=== PATIENT | female | born 1995 | race Caucasian/White ===

== ENCOUNTER 2024-06-19 18:11 | Emergency (ER) | payer SELFPAY ==
[~2024-06-19] VITALS: Ht 152.4 cm; Wt 40.8 kg
[2024-06-19 18:16] VITALS: O2SAT 99
[2024-06-19 20:07] LABS: GLUCOSE URINE NEGATIVE (NEGATIVE); KETONES URINE NEGATIVE (NEGATIVE)
[2024-06-19 20:18] LABS: *AMPHETAMINES SCREEN URINE PRESUMPTIVE POSITIVE (NEGATIVE); *BARBITURATES SCREEN URINE NEGATIVE (NEGATIVE); *BENZODIAZEPINES SCREEN URINE NEGATIVE (NEGATIVE); *COCAINE SCREEN URINE NEGATIVE (NEGATIVE); CANNABINOID URINE SCREEN NEGATIVE (NEGATIVE); COLOR URINE YELLOW (YELLOW); ECSTASY MDMA SCREEN URINE NEGATIVE (NEGATIVE); METHADONE URINE SCREEN NEGATIVE (NEGATIVE); OPIATES URINE SCREEN NEGATIVE (NEGATIVE); PH URINE 6.5 (4.5-8.0); PHENCYCLIDINE URINE SCREEN NEGATIVE (NEGATIVE); SPECIFIC GRAVITY URINE 1.007 (1.005-1.030)
[2024-06-19 20:19] LABS: LEUKOCYTE ESTERASE URINE TRACE (NEGATIVE); NITRITE URINE NEGATIVE (NEGATIVE); OCCULT BLOOD URINE 3+ (NEGATIVE); PROTEIN URINE NEGATIVE (NEGATIVE); UROBILINOGEN URINE 0.2 E.U./dL (0.2-1.0)
[2024-06-19 20:20] LABS: CLARITY URINE CLEAR (CLEAR)
[2024-06-19 20:26] LABS: BACTERIA URINE 1+; RBC URINE 0-2 /hpf (0-2); SQUAMOUS EPITHELIAL CELL URINE FEW /lpf (RARE/1+); WBC URINE 0-2 /hpf (0-2)
[2024-06-19] MEDS: LORAZEPAM 1MG TABLET PO ONE (22:05)
[2024-06-19 23:18] LABS: BASOPHILS % 1.3 % (0.0-2.0); EOSINOPHILS % 1.8 % (0.0-5.0); HEMATOCRIT. 35.7 % (36.0-48.0); HEMOGLOBIN. 12.2 g/dL (12.0-16.0); LYMPHOCYTES % 33.1 % (20.0-50.0); MEAN CORPUSCULAR HEMOGLOBIN 28.1 pg (28.0-32.0); MEAN CORPUSCULAR HGB CONC 34.1 g/dL (31.0-37.0); MEAN CORPUSCULAR VOLUME 82.6 fL (81.0-99.0); MEAN PLATELET VOLUME 6.7 fl (7.4-10.4); MONOCYTES % 7.1 % (2.0-8.0); NEUTROPHILS % 56.7 % (40.0-76.0); PLATELET 405 x1000/uL (130-400); RED BLOOD CELL COUNT 4.32 mill/uL (4.2-5.4); RED CELL DISTRIBUTION WIDTH 14.4 % (11.6-14.6)
[2024-06-19 23:25] LABS: CHLORIDE 102 mEq/L (98-107); POTASSIUM 3.8 mEq/L (3.5-5.1); SODIUM 140 mEq/L (136-145)
[2024-06-19 23:26] LABS: CARBON DIOXIDE 31 mEq/L (21-32)
[2024-06-19 23:27] LABS: CALCIUM 8.9 mg/dL (8.7-10.4)
[2024-06-19 23:30] LABS: HCG SCREEN NEGATIVE
[2024-06-19 23:31] LABS: CREATININE 0.8 mg/dL (0.6-1.0); GLUCOSE 99 mg/dL (70-105); UREA NITROGEN BLOOD 16 mg/dL (9-23)
[2024-06-19 23:33] LABS: ACETAMINOPHEN < 2 ug/mL (10-30); ALANINE AMINOTRANSFERASE 19 IU/L (10-49); ALBUMIN 3.8 g/dL (3.2-4.8); ASPARTATE AMINOTRANSFERASE 21 IU/L (<34)
[2024-06-19 23:34] LABS: BILIRUBIN TOTAL 0.3 mg/dL (0.1-1.0); PROTEIN TOTAL 6.9 g/dL (6.0-8.3)
[2024-06-19 23:39] LABS: BILIRUBIN DIRECT < 0.1 mg/dL (<=3.0); ETHANOL BLOOD < 10 mg/dL (<10)
[2024-06-20 22:19] VITALS: TEMP 36.89184
[2024-06-20 22:20] VITALS: BP 108/62; PULSE 86; RESP 20; O2SAT 98
== END 2024-06-20 22:47 ==
LOC: ER 18:11
DX: R45.851 Suicidal ideations (principal); F15.10 Other stimulant abuse, uncomplicated; J45.909 Unspecified asthma, uncomplicated; Z20.822 Contact with and (suspected) exposure to COVID-19
CPT/HCPCS: 36415; 80048; 80076; 80305; 80307; 80320; 80329; 81003; 84703; 85025; 87426; 99285; G0480

== ENCOUNTER 2025-03-08 10:15 | Emergency (ER) | payer SELFPAY ==
[~2025-03-08] VITALS: Ht 157.5 cm; Wt 46.0 kg
[2025-03-08 10:16] VITALS: BP 101/64; PULSE 85; RESP 14; TEMP 36.8; O2SAT 98
[2025-03-08 11:35] LABS: BASOPHILS % 0.7 % (0.0-2.0); EOSINOPHILS % 1.1 % (0.0-5.0); HEMATOCRIT. 32.2 % (36.0-48.0); HEMOGLOBIN. 10.7 g/dL (12.0-16.0); LYMPHOCYTES % 12.7 % (20.0-50.0); MEAN PLATELET VOLUME 7.1 fl (7.4-10.4); MONOCYTES % 5.5 % (2.0-8.0); NEUTROPHILS % 80.0 % (40.0-76.0); PLATELET 434 x1000/uL (130-400); RED BLOOD CELL COUNT 4.14 mill/uL (4.2-5.4); RED CELL DISTRIBUTION WIDTH 15.0 % (11.6-14.6)
[2025-03-08 11:49] LABS: UREA NITROGEN BLOOD 6 mg/dL (9-23)
[2025-03-08 11:53] LABS: CREATININE 0.5 mg/dL (0.6-1.0)
[2025-03-08 12:03] LABS: HCG SCREEN NEGATIVE
[2025-03-08] MEDS ORDERED: SULF1TAB48 MT (12:18)
[2025-03-08 12:31] LABS: ERYTHROCYTE SEDIMENTATION RATE 61 mm/hr (0-20)
[2025-03-08] MEDS: POTASSIUM CHLORIDE 20MEQ TABLET SR PO ONE (12:33)
== END 2025-03-08 12:58 | disposition home or self-care (01) ==
LOC: ER 10:22
DX: S90.922A Unspecified superficial injury of left foot, initial encounter (principal); J45.909 Unspecified asthma, uncomplicated; F15.90 Other stimulant use, unspecified, uncomplicated; X58.XXXA Exposure to other specified factors, initial encounter; Y93.89 Activity, other specified; Y92.89 Other specified places as the place of occurrence of the external cause; Y99.8 Other external cause status
CPT/HCPCS: 36415; 73610; 73630; 80048; 84703; 85025; 85651; 99284

== ENCOUNTER 2025-06-17 08:40 | Emergency (ER) | payer OTHER ==
[~2025-06-17] VITALS: Ht 162.6 cm; Wt 47.0 kg
[~2025-06-17 08:40] MED LIST: SULF1TAB48 MT
[2025-06-17 08:43] VITALS: BP 131/91; PULSE 91; RESP 18; TEMP 99.5; O2SAT 100
[2025-06-17] MEDS: ONDANSETRON 4MG ODT PO ONE (09:12)
[2025-06-17] MEDS ORDERED: ONDA4TAB50 MT (09:41)
[2025-06-18] MEDS ORDERED: CEPH500T MT (03:08)
== END 2025-06-17 09:56 | disposition home or self-care (01) ==
LOC: ER 08:40
DX: F15.10 Other stimulant abuse, uncomplicated (principal)
CPT/HCPCS: 99283; Q0162

== ENCOUNTER 2025-06-17 17:14 | Emergency (ER) | payer OTHER ==
[~2025-06-17] VITALS: Ht 157.5 cm; Wt 55.0 kg
[~2025-06-17 17:14] MED LIST changes: +ONDA4TAB50 MT
[2025-06-17 17:15] VITALS: O2SAT 100
[2025-06-17] MEDS: IBUPROFEN 600MG TABLET PO ONE (22:53)
[2025-06-18 00:29] LABS: BASOPHILS % 0.5 % (0.0-2.0); EOSINOPHILS % 0.1 % (0.0-5.0); HEMATOCRIT. 32.1 % (36.0-48.0); HEMOGLOBIN. 10.2 g/dL (12.0-16.0); LYMPHOCYTES % 12.7 % (20.0-50.0); MEAN PLATELET VOLUME 6.9 fl (7.4-10.4); MONOCYTES % 3.2 % (2.0-8.0); NEUTROPHILS % 83.5 % (40.0-76.0); PLATELET 531 x1000/uL (130-400); RED BLOOD CELL COUNT 4.23 mill/uL (4.2-5.4); RED CELL DISTRIBUTION WIDTH 15.8 % (11.6-14.6)
[2025-06-18 00:36] LABS: CREATININE 0.7 mg/dL (0.6-1.0)
[2025-06-18 00:37] LABS: UREA NITROGEN BLOOD 13 mg/dL (9-23)
[2025-06-18 00:39] LABS: ASPARTATE AMINOTRANSFERASE 15 IU/L (<34); BILIRUBIN TOTAL 0.3 mg/dL (0.1-1.0); PROTEIN TOTAL 7.4 g/dL (6.0-8.3)
[2025-06-18] MEDS: POTASSIUM CHLORIDE 20MEQ/PACKET PO ONE (01:45)
[2025-06-18 02:21] LABS: HCG SCREEN NEGATIVE
[2025-06-18 02:47] LABS: CLARITY URINE CLOUDY (CLEAR); COLOR URINE YELLOW (YELLOW); GLUCOSE URINE NEGATIVE (NEGATIVE); KETONES URINE NEGATIVE (NEGATIVE); LEUKOCYTE ESTERASE URINE 3+ (NEGATIVE); NITRITE URINE POSITIVE (NEGATIVE); OCCULT BLOOD URINE TRACE (NEGATIVE); PH URINE 5.5 (4.5-8.0); PROTEIN URINE TRACE (NEGATIVE); SPECIFIC GRAVITY URINE 1.016 (1.005-1.030); UROBILINOGEN URINE 0.2 E.U./dL (0.2-1.0)
[2025-06-18] MEDS ORDERED: CEPH500T MT (03:08)
[2025-06-18 03:53] LABS: SQUAMOUS EPITHELIAL CELL URINE FEW /lpf (RARE/1+)
[2025-06-18 03:54] LABS: BACTERIA URINE 3+; RBC URINE 0-2 /hpf (0-2)
[2025-06-18] MEDS: CEFTRIAXONE 1GM/50ML 50 ML IV ONE (04:17)
[2025-06-18] MEDS: SODIUM CHLORIDE 0.9% 1,000 ML IV ONE (04:19)
[2025-06-18 05:32] VITALS: BP 111/63; PULSE 91; RESP 18; TEMP 36.5; O2SAT 100
== END 2025-06-18 05:52 | disposition home or self-care (01) ==
LOC: ER 17:14
DX: R53.83 Other fatigue (principal); E87.6 Hypokalemia; N39.0 Urinary tract infection, site not specified; H53.2 Diplopia
CPT/HCPCS: 81025; 36415; 71045; 73610; 96365; 99285; 80053; 81003; 84703; 85025; 87086; 87186; 87077; J0696; J7030; Z7610

== ENCOUNTER 2025-07-01 01:36 | Emergency (ER) | payer OTHER ==
[~2025-07-01] VITALS: Ht 157.5 cm; Wt 48.0 kg
[~2025-07-01 01:36] MED LIST changes: +CEPH500T MT
[2025-07-01 01:41] VITALS: O2SAT 99
[2025-07-01 01:47] VITALS: BP 120/84; PULSE 132; RESP 14; TEMP 36.8; O2SAT 96
== END 2025-07-01 03:25 | disposition left against medical advice (07) ==
LOC: ER 01:36
DX: R51.9 Headache, unspecified (principal); J45.909 Unspecified asthma, uncomplicated
CPT/HCPCS: 99281